=== PATIENT | male | born 1960 | race Caucasian/White ===

== ENCOUNTER 2020-11-16 22:00 | Emergency (ER) | payer OTHER, SELFPAY ==
[2020-11-16 23:52] VITALS: BP 138/85; PULSE 72; RESP 18; TEMP 36; O2SAT 98; BMI 25.8
--- NOTE | 2020-11-17 00:13 | ED.ANIMALBIT ---
HPI - Animal Bite General Chief Complaint: Animal Bite Stated Complaint: DOG BITES Time Seen by Provider: 11/17/20 00:02 Source: patient Mode of arrival: ambulatory Limitations: no limitations History of Present Illness HPI narrative: Patient comes to emergency room complaining of multiple dog bites to the hands. Patient states he has to [place] dogs which got into a fight with each other. As patient was trying to break up the fight, he was bitten in the process. Patient has multiple small puncture wounds to both hands, most notably on the left palm. However, patient is also complaining of a small laceration to the scrotal skin. Patient states he does not remember being bitten in the scrotum. Patient states his pants and underwear do not have holes. After the dog bite, patient went to the restroom, as he sat down on a toilet, he noticed that there was a laceration in his scrotum which was not there before the dog fight. Patient denies being injured with the zipper of his pants. Patient states that he does not believe that he is up-to-date with his tetanus shot. MD complaint: animal bite Related Data Previous Rx's Medication Instructions Recorded amoxicillin-pot clavulanate 1 tab PO BID #19 tab 11/17/20 [Augmentin] Allergies Allergy/AdvReac Type Severity Reaction Status Date / Time No Known Allergies Allergy Verified 11/16/20 23:52 Review of Systems Review of Systems: Constitutional : No Weight loss, No Fever, No Chills, No Night Sweats, No Fatigue, No Malaise ENT/Mouth : No Hearing loss, No Ear Pain, No Nasal Congestion, No Sinus Pain, No Hoarseness, No sore throat, No Rhinorrhea, No Swallowing Difficulty Eyes: No Eye Pain, No Swelling, No Redness, No Foreign Body, No Discharge, No Vision Changes Cardiovascular : No Chest Pain, No SOB, No Dyspnea on Exertion, No Orthopnea, No Edema, No Palpitations Respiratory : No Cough, No Sputum, No Wheezing, No Smoke Exposure, No Dyspnea Gastrointestinal : No Nausea, No Vomiting, No Diarrhea, No Constipation, No abdominal Pain, No Hematochezia, No Melena Genitourinary : no irregular bleeding, No Dysuria, No Urinary Frequency, No Hematuria, No Urinary Incontinence, No Urgency, No Flank Pain, No Urinary Flow Changes, No Hesitancy Musculoskeletal : No joint pain, No Myalgias, No Joint Swelling Skin : Multiple puncture wounds to left palm and multiple scratches to both hands, also small laceration to the skin in scrotum Neuro : No Weakness, No Numbness, No Paresthesias, No Loss of Consciousness, No Dizziness, No Headache Psych : No Anxiety/Panic, No Depression, No SI/HI/AH/VH, No Social Issues, Heme/Lymph: No Bruising, No Bleeding,No Lymphadenopathy Endocrine : No Polyuria, No Polydipsia, No Temperature Intolerance [facility] Past Medical History Medical History Healthy adult Social History Social History Advance Directives: No Physical Exam Vital Signs: Vital Signs: Last Vital Signs Temp 96.8 F 11/16/20 23:52 Pulse 72 11/16/20 23:52 Resp 18 11/16/20 23:52 BP 138/85 11/16/20 23:52 Pulse Ox 98 11/16/20 23:52 Body Mass Index 25.8 Appearance: Alert. Oriented X3. No acute distress. Eyes: Pupils equal, round and reactive to light. ENT: Pharynx normal. Neck: Normal inspection. Neck supple. No lymph nodes noted. No crepitus CVS: Normal heart rate and rhythm. Pulses normal. Normal S1 and S2 Respiratory: No respiratory distress. Breath sounds normal. No Wheezing. No rales Abdomen: Soft and nontender. No rigidity. No distention. good BS x4 : see bellow Skin: There are multiple puncture wounds to the palm of the left hand, superficial scratches to both hands in the palmar and dorsal aspect. There is also a 1 cm laceration to the scrotal skin, skin is lacerated but is not deep, the testes and penis are intact Extremities: No lower extremity edema. No lower extremity edema. No Lacerations. No Rash Neuro: Oriented X 3. No motor deficit. No sensory deficit. Moving all extermities. No slurred speech. Course Course Course Narrative: Patient's hands were soaked in normal saline with Betadine. Scrotum skin was stitched. I discussed with the patient that usually dog bites are not stitched up on a stair face, however the skin in the scrotum speech is very , and the stitches applied where to confront the skin and speed of the healing, there was enough space between stitches to allow for drainage. I discussed with the patient that if the stitches become infected, sees any redness, pus, spikes fever or if the hand wounds become infected, he needs to return immediately to the emergency room. Procedures Laceration Laceration 1: Site: other (Scrotum) Size (cm): 2 Description: stellate, flap and irregular Depth: simple, single layer Local Anesthetic: lidocaine 2% Amount of anesthesia used (mL): 2 Pre-repair: irrigated extensively Skin layer closed with: nylon Size (cm): 6-0 Number of sutures: 4 Technique: simple, interrupted Discharge Plan Discharge Clinical Impression: Laceration Dog bite Qualifiers: Encounter type: initial encounter Qualified Code(s): W54.0XXA - Bitten by dog, initial encounter Patient Disposition: Home, Self-Care Instructions: Care For Your Stitches (ED) Additional Instructions: If you have any signs of infection such as redness, increased pain, increased warmth in the affected area, pus drainage, spiked fever, or anything unusual, please return to the emergency room. Your stitches need to be removed in 7-10 days. They can be removed at your primary care doctor's office or you may return to the emergency room. Please follow-up with your primary care physician tomorrow. If you have any worsening or new symptoms, please return to the emergency room or call 911 Prescriptions: New amoxicillin-pot clavulanate [Augmentin] 875-125 mg tablet 1 tab PO BID Qty: 19 RF: 0
[2020-11-17] MEDS: Amoxicillin/Potassium Clav 875 MG TABLET PO (00:50)
[2020-11-17] MEDS: Lidocaine HCl 2 % MPF 5 ML VIAL INFILTRATI (00:54)
== END 2020-11-17 01:21 | disposition home or self-care (01) ==
PROVIDERS: Emergency Provider Emergency Medicine; PCP Internal Medicine
DX: S31.31XA Laceration without foreign body of scrotum and testes, initial encounter (principal); S61.432A Puncture wound without foreign body of left hand, initial encounter; S61.431A Puncture wound without foreign body of right hand, initial encounter; S60.512A Abrasion of left hand, initial encounter; S60.511A Abrasion of right hand, initial encounter; W54.0XXA Bitten by dog, initial encounter; Y93.89 Activity, other specified; Y92.019 Unspecified place in single-family (private) house as the place of occurrence of the external cause; Y99.9 Unspecified external cause status
CPT/HCPCS: 12001; 90471; 90715; 99284

== ENCOUNTER 2020-11-21 07:57 | Emergency (ER) | payer OTHER, SELFPAY ==
[2020-11-21 08:53] VITALS: BP 121/77; PULSE 63; RESP 16; TEMP 36.8; O2SAT 97; BMI 25.7
--- NOTE | 2020-11-21 09:04 | ED.WOUNDLAC ---
HPI - Wound/Laceration General Chief Complaint: Wound/Laceration Stated Complaint: SUTURES CAME OUT Time Seen by Provider: 11/21/20 09:04 History of Present Illness HPI narrative: Patient is a 60-year-old male patient had laceration to his scrotum on was bitten by his dog. No fever no chills a few of the stitches came out. Patient presented for wound check. No systemic complaints. Patient not on blood thinners. He has been trying to keep it clean Related Data Previous Rx's Medication Instructions Recorded amoxicillin-pot clavulanate 1 tab PO BID #19 tab 11/17/20 [Augmentin] Allergies Allergy/AdvReac Type Severity Reaction Status Date / Time No Known Allergies Allergy Verified 11/16/20 23:52 Review of Systems Review of Systems: Constitutional: No Weight loss, No Fever, No Chills, No Night Sweats, No Fatigue, No Malaise ENT/Mouth: No Hearing loss, No Ear Pain, No Nasal Congestion, No Sinus Pain, No Hoarseness, No sore throat, No Rhinorrhea, No Swallowing Difficulty Eyes: No Eye Pain, No Swelling, No Redness, No Foreign Body, No Discharge, No Vision Changes Cardiovascular: No Chest Pain, No SOB, No Dyspnea on Exertion, No Orthopnea, No Edema, No Palpitations Respiratory: No Cough, No Sputum, No Wheezing, No Smoke Exposure, No Dyspnea Gastrointestinal: No Nausea, No Vomiting, No Diarrhea, No Constipation, No abdominal Pain, No Hematochezia, No Melena Genitourinary: no irregular bleeding, No Dysuria, No Urinary Frequency, No Hematuria, No Urinary Incontinence, No Urgency, No Flank Pain, No Urinary Flow Changes, No Hesitancy Musculoskeletal: No joint pain, No Myalgias, No Joint Swelling Skin: Positive scrotal lesion approximately 3 cm in size. Neuro: No Weakness, No Numbness, No Paresthesias, No Loss of Consciousness, No Dizziness, No Headache Psych: No Anxiety/Panic, No Depression, No SI/HI/AH/VH, No Social Issues, Heme/Lymph: No Bruising, No Bleeding,No Lymphadenopathy Endocrine: No Polyuria, No Polydipsia, No Temperature Intolerance PMFSH Past Medical History Medical History Healthy adult Restless leg syndrome Social History Social History Smoked in Last 30 Days: No Use of substances other than those prescribed or required for medical reasons: No Advance Directives: No Advance Directives Information Provided: Yes Physical Exam Vital Signs: Vital Signs: Last Vital Signs Temp 98.2 F 11/21/20 08:53 Pulse 63 11/21/20 08:53 Resp 16 11/21/20 08:53 BP 121/77 11/21/20 08:53 Pulse Ox 97 11/21/20 08:53 Body Mass Index 25.7 Appearance: Alert. Oriented X3. No acute distress. Eyes: Pupils equal, round and reactive to light. ENT: Pharynx normal. Neck: Normal inspection. Neck supple. No lymph nodes noted. No crepitus CVS: Normal heart rate and rhythm. Pulses normal. Normal S1 and S2 Respiratory: No respiratory distress. Breath sounds normal. No Wheezing. No rales Abdomen: Soft and nontender. No rigidity. No distention. good BS x4 Skin: Skin warm and dry. Normal skin color. Normal skin turgor. There is a wound in the scrotum approximately 2 cm to 3 cm in size. The lower 2 stitches has opened up. There is granulation tissue at the base. Minimal erythema minimal discharge noted. The top 2 sutures are still in place. Extremities: No lower extremity edema. Neurovascular intact to all extremities. No Lacerations. No Rash Neuro: Oriented X 3. No motor deficit. No sensory deficit. Moving all extermities. No slurred speech MDM - Wound/Laceration MDM Narrative Medical decision making narrative: Patient already on antibiotics. Will discharge patient home. Continue current management of cleaning and using antibiotic. There is no systemic complaints. Patient well appearing. Has close follow-up for wound checks. Will discharge patient home Differential Diagnosis Differential diagnosis: Likely laceration Medical Records Attestation: I reviewed the patient's medical records. Lab Data Attestation: I reviewed the patient's lab results. Discharge Plan Discharge Clinical Impression: Laceration Patient Disposition: Home, Self-Care Instructions: Acute Wounds (ED), Animal Bite (ED) Prescriptions: No Action amoxicillin-pot clavulanate [Augmentin] 875-125 mg tablet 1 tab PO BID Qty: 19 RF: 0 Referrals: Ross Burt MD [Primary Care Provider] - 2 days
== END 2020-11-21 09:27 | disposition home or self-care (01) ==
PROVIDERS: Emergency Provider Emergency Medicine Emergency Medical Services; PCP Internal Medicine
DX: S31.35XA Open bite of scrotum and testes, initial encounter (principal); N50.812 Left testicular pain; N50.811 Right testicular pain; W54.0XXA Bitten by dog, initial encounter; Y93.9 Activity, unspecified; Y92.9 Unspecified place or not applicable; Y99.9 Unspecified external cause status
CPT/HCPCS: 99283

== ENCOUNTER 2022-01-28 04:44 | Inpatient (IN) | payer OTHER, SELFPAY ==
--- NOTE | ~2022-01-28 | CT_ITS ---
EXAMINATION: d CT SCAN OF THE LEFT HAND WAS PERFORMED WITH CONTRAST. CLINICAL INFORMATION: Evaluate for tenosynovitis fifth digit COMPARISON: None TECHNIQUE: CT scan of the left hand is performed with contrast. Contrast dose 85 cc cc of Omnipaque 350 . Obstruction imaging performed at the acquisition workstation FINDINGS: Subcutaneous soft tissues: There is increased density circumferentially involving the distal portion of the fifth finger beginning at the level of the mid proximal phalanx and extending distally. Muscles and tendons: Fifth digit: Tendons normal. No tenosynovitis. Bony and articular cartilage: Normal. CT/CT hand LT w con IMPRESSION: Increased density in the subcutaneous soft tissues of the distal fifth finger. This could reflect cellulitis or edema. I do not see tenosynovitis
[2022-01-28 05:00] VITALS: BP 120/73; PULSE 60; RESP 16; TEMP 36.4; O2SAT 97
[2022-01-28 05:10] VITALS: BMI 25.0
--- NOTE | 2022-01-28 05:17 | ED.EXTPRO ---
HPI - Extremity Problem General Chief complaint: Extremity Problem Stated complaint: infection in L pinky finger (swollen) Time Seen by Provider: 01/28/22 05:00 Source: patient Mode of arrival: ambulatory Limitations: no limitations History of Present Illness HPI Narrative: Patient comes to the emergency room complaining of an infection in the left 5th digit. Patient states that he has been developing a small pimple like structure on the dorsal aspect of the finger. Him the last few days, patient started complaining of pain and oozing from the site. Patient went to urgent care yesterday, they drained the small abscess. Patient was started on Keflex and Bactrim. This morning, patient woke up with worsening pain, swelling and redness, now the erythema is spreading to the dorsum of his hand. Patient denies fever chills. Related Data Previous Rx's Medication Instructions Recorded amoxicillin 875 mg-potassium 1 tab PO BID #19 tab 11/17/20 clavulanate 125 mg tablet (Augmentin) Allergies Allergy/AdvReac Type Severity Reaction Status Date / Time No Known Allergies Allergy Verified 11/16/20 23:52 Review of Systems Review of Systems: Constitutional : No Weight loss, No Fever, No Chills, No Night Sweats, No Fatigue, No Malaise ENT/Mouth : No Hearing loss, No Ear Pain, No Nasal Congestion, No Sinus Pain, No Hoarseness, No sore throat, No Rhinorrhea, No Swallowing Difficulty Eyes: No Eye Pain, No Swelling, No Redness, No Foreign Body, No Discharge, No Vision Changes Cardiovascular : No Chest Pain, No SOB, No Dyspnea on Exertion, No Orthopnea, No Edema, No Palpitations Respiratory : No Cough, No Sputum, No Wheezing, No Smoke Exposure, No Dyspnea Gastrointestinal : No Nausea, No Vomiting, No Diarrhea, No Constipation, No abdominal Pain, No Hematochezia, No Melena Genitourinary : no irregular bleeding, No Dysuria, No Urinary Frequency, No Hematuria, No Urinary Incontinence, No Urgency, No Flank Pain, No Urinary Flow Changes, No Hesitancy Musculoskeletal : No joint pain, No Myalgias, No Joint Swelling Skin : Worsening redness swelling and pain in the 5th left finger Neuro : No Weakness, No Numbness, No Paresthesias, No Loss of Consciousness, No Dizziness, No Headache Psych : No Anxiety/Panic, No Depression, No SI/HI/AH/VH, No Social Issues, Heme/Lymph: No Bruising, No Bleeding,No Lymphadenopathy Endocrine : No Polyuria, No Polydipsia, No Temperature Intolerance [facility] Past Medical History Medical History Healthy adult Restless leg syndrome Social History Social History Advance Directives: No Advance Directives Information Provided: No Physical Exam Vital Signs: Vital Signs: Last Vital Signs Temp 97.5 F 01/28/22 05:00 Pulse 60 01/28/22 05:00 Resp 16 01/28/22 05:00 BP 120/73 01/28/22 05:00 Pulse Ox 97 01/28/22 05:00 BMI result Body Mass Index 25.0 Const: Other: Appearance: Alert. Oriented X3. No acute distress. Eyes: Pupils equal, round and reactive to light. ENT: Pharynx normal. Neck: Normal inspection. Neck supple. No lymph nodes noted. No crepitus CVS: Normal heart rate and rhythm. Pulses normal. Normal S1 and S2 Respiratory: No respiratory distress. Breath sounds normal. No Wheezing. No rales Abdomen: Soft and nontender. No rigidity. No distention. Skin: Skin warm and dry. See extremity below Extremities: No lower extremity edema. Patient's 5th finger on the left hand is swollen, erythematous, erythema spreading to the dorsum of the left hand. Patient is able to flex and extend all fingers including the 5th digit Neuro: Oriented X 3. No motor deficit. No sensory deficit. Moving all extremities. No slurred speech. CN 2 through 12 grossly intact Psych: calm, cooperative, normal affect Course Course Course Narrative: Patient has been on an antibiotic for less than 24 hours, however he has had 2 doses and the erythema is rapidly spreading. I discussed with the patient that we will go ahead and get labs, imaging to rule out tenosynovitis. Overall, patient is likely to be admitted to the hospital. Patient agrees with plan. Discharge Plan Discharge Clinical Impression: Cellulitis of finger of left hand Patient Disposition: Admitted As Inpatient Prescriptions: No Action amoxicillin-pot clavulanate [Augmentin] 875-125 mg tablet 1 tab PO BID Qty: 19 0RF
[2022-01-28 05:49] LABS: MANUAL DIFF FLAG NO
[2022-01-28] MEDS: 0.9 % Sodium Chloride 1,000 ML 999 ML IVCONT (05:49)
[2022-01-28] MEDS: Piperacillin Sodium/Tazobactam 4.5 GM in 0.9 % Sodium Chloride 100 ML IV (05:49)
[2022-01-28 05:51] LABS: Basophils Percent Auto 0.1 % (0-2); Eosinophils Absolute Auto 0.1 X10*3/uL (0.0-0.4); Eosinophils Percent Auto 0.6 % (0-4); Hematocrit 42.5 % (42.0-52.0); Hemoglobin 14.7 g/dl (14.0-18.0); Imm Gran Abs Auto 0.02 X10*3/uL (0.00-0.03); Imm Gran Pct Auto 0.2 % (0.0-0.4); Lymphocytes Percent Auto 9.5 % (20-40); Mean Corpuscular HGB Conc 34.6 g/dl (31.0-36.0); Mean Corpuscular Hemoglobin 30.2 pg (27.0-33.0); Mean Corpuscular Volume 87.4 fL (80.0-98.0); Mean Platelet Volume 9.2 fL (9.4-12.4); Monocytes Absolute Auto 0.8 X10*3/uL (0.1-1.2); Monocytes Percent Auto 7.6 % (2-11); Neutrophils Absolute Auto 8.3 x10*3/uL (2.0-8.3); Platelet Count 200 X10*3/uL (160-400); Red Blood Count 4.86 X10*6/uL (4.60-5.80); Red Cell Distribution Width 12.4 % (11.0-16.0); White Blood Count 10.2 X10*3/uL (4.8-10.8)
[2022-01-28 06:03] LABS: COVID-19 Test Negative (Negative)
[2022-01-28 06:04] LABS: Lactic Acid 1.7 mmol/L (0.5-2.0)
[2022-01-28 06:09] LABS: Alanine Aminotransferase 26 U/L (0-40); Albumin Level 4.3 g/dL (3.5-5.0); Alkaline Phosphatase 52 U/L (39-117); Anion Gap 14 (12-20); Aspartate Amino Transferase 31 U/L (5-37); Bilirubin Direct 0.3 mg/dL (0.0-0.5); Bilirubin Total 0.9 mg/dL (0.0-1.0); Blood Urea Nitrogen 18 mg/dL (9-16); Calcium 9.4 mg/dL (8.4-10.2); Carbon Dioxide 24 mmol/L (22-29); Chloride 105 mmol/L (96-108); Creatinine Clr Calc Pharmacy 68.8; Estimated Glomerular Filt Rate > 60; Glucose Random 100 mg/dL (60-115); Potassium 4.1 mmol/L (3.3-5.1); Sodium 139 mmol/L (135-145); Total Protein 6.8 g/dL (6.5-8.0)
--- NOTE | 2022-01-28 06:26 | PHA.PROG ---
Admission Date/Time: Indication: Skin and skin structure Weight in k.575 kg Adjusted body weight in K.69 [place] body weight in Kg: Obesity Dosing Indication % IBW: Serum Creatinine - Last 168 Hours 01/28/22 05:44 Creatinine 1.08 Estimated CrCl and GFR - Last 168 Hours 01/28/22 05:44 Estim Creat Clear Calc 68.8 Estimated GFR > 60 Vancomycin Loading Dose: 1500 mg x 1 Current Vancomycin Dosing Regimen: 750mg q12h Vancomycin Monitoring using AUC goal of 400 - 600 range with trough as surrogate marker: auc 475, trough 15.6 Date and Time for next Vancomycin Level to be drawn: 01/29/2022 @ 1700 Pharmacist Comments on Vancomycin Plan: Please watch renal function. Trough after 3rd dose will be therapuetic but AUC expected to be over 400 at 48 hour kathia Vancomycin dosing will take advantage of [employer] as a clinical decision support tool that uses Bayesian modeling to calculate individual patient's pharmacokinetic parameters and forecast the patient's drug concentration time course with the target goal AUC 24 range of 400 - 600 mg/L/hr.
[2022-01-28] MEDS: iohexoL 350 MG/ML 100 ML INFUS..BTL 85 ML IV (07:03)
[2022-01-28] MEDS: vancomycin HCL 1,500 MG in 0.9 % Sodium Chloride 500 ML 333.33 MG IV (07:35)
--- NOTE | 2022-01-28 07:45 | PC.NURSE ---
Pt is A&Ox4. Pain 6/10 to L 5th digit. Redness and swelling present, no drainage noted at this time. +pulses. Plan for admission, pt is aware. Call amato within reach. Will continue to monitor.
--- NOTE | 2022-01-28 08:23 | PHA.MEDREC ---
Pharmacy Consult ? Medication Reconciliation Pharmacy has completed the medication reconciliation.
--- NOTE | 2022-01-28 09:46 | PM.IMHP ---
History of Present Illness Date of Service: 01/28/22 Chief Complaint: Left little finger erythema and swelling A 61 years old patient with PMH of restless leg who presents to the hospital complaining of little left finger pain and swelling for the last day. He reported that he developed a pimple over the fingers day before presentation to the hospital that he went to urgent care who did drainage for the small abscess and started him on oral antibiotics. He went back home and started the pills but noticed a swelling, erythema and pain are increasing an expanding to his wrist so he decided to come to the hospital for further evaluation and treatment. He denies any fever, chills, abdominal pain, nausea or vomiting or change in bowel habit. He will be admitted for further evaluation and treatment. Review of Systems Review of Systems: No fever, chills or weakness No chest pain, palpitation No shortness of breath or coughing No abdominal pain, nausea or vomiting No urinary symptoms Pain in his little finger PMFSH Medical History Healthy adult Restless leg syndrome Family History (Updated 01/28/22 @ 10:03 by Gabino Dey MD) Father Hypertension Social History Advance Directives: No Advance Directives Information Provided: No Meds Allergies Allergy/AdvReac Type Severity Reaction Status Date / Time No Known Allergies Allergy Verified 11/16/20 23:52 Active Medications: Current Medications Acetaminophen (Acetaminophen 325 Mg Tablet) 650 mg PO Q6H PRN PRN Reason: Pain, Mild (Pain Scale 1-3) Gabapentin (Gabapentin 400 Mg Capsule) 400 mg PO BEDTIME LADY Heparin Sodium (Porcine) (Heparin Sodium,Porcine 5,000 Unit/Ml Vial) 5,000 unit SUBCUT Q8H LADY Vancomycin HCl 750 mg/ Sodium (Chloride) 265 mls @ 265 mls/hr IV Q12H LADY Ketorolac Tromethamine (Ketorolac Tromethamine 30 Mg/Ml Vial) 30 mg IVPUSH ONCE ONE Stop: 01/28/22 09:43 Ondansetron HCl (Ondansetron Hcl 4 Mg/2 Ml Vial) 4 mg IVPUSH Q8H PRN PRN Reason: Nausea and Vomiting Oxycodone HCl (Oxycodone Hcl Immed Release 5 Mg Tablet) 5 mg PO Q6H PRN PRN Reason: Pain, Severe (Pain Scale 7-10) Pharmacy Consult (Consult Rx Vancomycin Dosing) 1 each MISCELLANE DAILY PRN PRN Reason: Consult order Sodium Chloride (0.9 % Sodium Chloride Flush 3 Ml Syringe) 3 ml IVFLUSH QSHIFT [facility] Home Medications Medication Instructions Recorded Confirmed Last Taken Type acetaminophen 300 mg-codeine 30 mg 1 tab PO Q6H PRN 01/28/22 01/28/22 01/28/22 History tablet gabapentin 400 mg capsule 1 cap PO BEDTIME 01/28/22 01/28/22 01/27/22 History sulfamethoxazole 800 1 tab PO BID 01/28/22 01/28/22 01/28/22 History mg-trimethoprim 160 mg tablet Physical Exam Vital Signs and Narrative: Vital Signs: Last Vital Signs Temp 97.5 F 01/28/22 05:00 Pulse 60 01/28/22 05:00 Resp 16 01/28/22 05:00 BP 120/73 01/28/22 05:00 Pulse Ox 97 01/28/22 05:00 BMI result Body Mass Index 25.0 Const: Other: Constitutional : Alert, oriented, not in distress Neck : Normal inspection, Supple Cardiovascular : RRR, S1 S2, no lower extremity edema Respiratory : Good bilateral air entry, no crackles, wheezes or rhonchi Gastrointestinal: soft, lax, Normal bowel sounds, Non tender Skin : Warm, Dry, left little finger erythema, with swelling of the top of the finger with erythema extending to the wrist, significant bleed decreased range of movement and pain with touch. Neurological : Alert & oriented x3, No focal deficit Results Labs CBC and Chem 7: 01/28/22 05:44 01/28/22 05:44 Labs: Laboratory Results - last 24 hr 01/28/22 01/28/22 01/28/22 05:44 05:44 05:44 MCV 87.4 MCH 30.2 MCHC 34.6 RDW 12.4 Plt Count 200 MPV 9.2 L Immature Gran % (Auto) 0.2 Neut % (Auto) 82.0 H Lymph % (Auto) 9.5 L [place] % (Auto) 7.6 Eos % (Auto) 0.6 Baso % (Auto) 0.1 Lymph # (Auto) 1.0 L [place] # (Auto) 0.8 Eos # (Auto) 0.1 Baso # (Auto) 0.0 Abs Immat Gran (auto) 0.02 Absolute Neuts (auto) 8.3 Absolute Nucleated RBC 0.000 Nucleated RBC % (auto) 0.0 Anion Gap 14 Estim Creat Clear Calc 68.8 Estimated GFR > 60 Random Glucose 100 Lactic Acid 1.7 Calcium 9.4 Total Bilirubin 0.9 Direct Bilirubin 0.3 AST 31 ALT 26 Alkaline Phosphatase 52 Total Protein 6.8 Albumin 4.3 COVID-19 (EFFIE) COVID-19 Clin Com 01/28/22 05:44 MCV MCH MCHC RDW Plt Count MPV Immature Gran % (Auto) Neut % (Auto) Lymph % (Auto) [place] % (Auto) Eos % (Auto) Baso % (Auto) Lymph # (Auto) [place] # (Auto) Eos # (Auto) Baso # (Auto) Abs Immat Gran (auto) Absolute Neuts (auto) Absolute Nucleated RBC Nucleated RBC % (auto) Anion Gap Estim Creat Clear Calc Estimated GFR Random Glucose Lactic Acid Calcium Total Bilirubin Direct Bilirubin AST ALT Alkaline Phosphatase Total Protein Albumin COVID-19 (EFFIE) Negative COVID-19 Clin Com See Note Imaging Radiologist's Impressions: Impressions Hand CT 01/28/22 07:10 IMPRESSION: Increased density in the subcutaneous soft tissues of the distal fifth finger. This could reflect cellulitis or edema. I do not see tenosynovitis Assessment and Plan (1) Cellulitis of finger of left hand: Status: Acute Plan A 61 years old patient with PMH of restless leg who presents to the hospital complaining of little left finger pain and swelling for the last day. Left hand cellulitis Not septic CT scan not showing Tinoynovitis Pending blood cultures Get hand surgery evaluation Start broad-spectrum antibiotic of vancomycin Zosyn Restless leg syndrome Continue gabapentin DVT PPX Heparin The patient will need at least 2 overnight hospital stay for evaluation and treatment above cellulitis and decrease range of motion in the finger given possible decompensation pending orthopedic evaluation. Quality Stroke Does the patient have a stroke diagnosis?: No VTE Prior VTE?: No VTE Risk Level:: Medical - moderate - high VTE Device Contraindication: Treatment Not Indicated VTE Drug Contraindication: N/A - Med Ordered
[2022-01-28] MEDS: oxyCODONE HCl Immed Release 5 MG TABLET PO ×3 (09:47→22:11)
[2022-01-28] MEDS: Ketorolac Tromethamine 30 MG/ML VIAL IVPUSH (10:23)
[2022-01-28] MEDS: Heparin Sodium,Porcine 5,000 UNIT/ML VIAL 5000 UNIT SUBCUT ×2 (10:23→18:26)
--- NOTE | 2022-01-28 11:50 | PC.NURSE ---
Pt sitting in chair in room, pain controlled at this time, aware and agreeable to admission plan. Call amato within reach, snacks provided. Awaiting bed assignment, will continue to monitor.
--- NOTE | 2022-01-28 14:02 | PM.CNOR ---
History of Present Illness HPI Consult date: 01/28/22 Chief complaint: Finger pain Narrative: 61 yo male who presented to the ED with worsening pain, swelling and redness of the left small finger . He states it started as a pimple and he tried topop it, he noticed worsening symptoms the following day and was seen at Urgent care where they made a pin prick incision and drained some pus and placed him on PO abx. He came in today with worsening symptoms. He was admitted to the medical service and started on iv abx and ortho was consulted for further recommendtions. Review of Systems Review of Systems: per [facility] Past Medical History Medical History Healthy adult Restless leg syndrome Family History Family History (Updated 01/28/22 @ 10:03 by Gabino Dey MD) Father Hypertension Social History Social History Advance Directives: No Advance Directives Information Provided: No Meds Allergies Allergy/AdvReac Type Severity Reaction Status Date / Time No Known Allergies Allergy Verified 11/16/20 23:52 Active Medications: Current Medications Acetaminophen (Acetaminophen 325 Mg Tablet) 650 mg PO Q6H PRN PRN Reason: Pain, Mild (Pain Scale 1-3) Gabapentin (Gabapentin 400 Mg Capsule) 400 mg PO BEDTIME [facility] Heparin Sodium (Porcine) (Heparin Sodium,Porcine 5,000 Unit/Ml Vial) 5,000 unit SUBCUT Q8H [facility] Last Admin: 01/28/22 10:23 Dose: 5,000 unit Documented by: Vancomycin HCl 750 mg/ Sodium (Chloride) 265 mls @ 265 mls/hr IV Q12H [facility] Ondansetron HCl (Ondansetron Hcl 4 Mg/2 Ml Vial) 4 mg IVPUSH Q8H PRN PRN Reason: Nausea and Vomiting Oxycodone HCl (Oxycodone Hcl Immed Release 5 Mg Tablet) 5 mg PO Q6H PRN PRN Reason: Pain, Severe (Pain Scale 7-10) Pharmacy Consult (Consult Rx Vancomycin Dosing) 1 each MISCELLANE DAILY PRN PRN Reason: Consult order Sodium Chloride (0.9 % Sodium Chloride Flush 3 Ml Syringe) 3 ml IVFLUSH QSHIFT [facility] Home Medications Medication Instructions Recorded Confirmed Last Taken Type acetaminophen 300 mg-codeine 30 mg 1 tab PO Q6H PRN 01/28/22 01/28/22 01/28/22 History tablet gabapentin 400 mg capsule 1 cap PO BEDTIME 01/28/22 01/28/22 01/27/22 History sulfamethoxazole 800 1 tab PO BID 01/28/22 01/28/22 01/28/22 History mg-trimethoprim 160 mg tablet Physical Exam Vital Signs: Vital Signs: Last Vital Signs Temp 97.5 F 01/28/22 05:00 Pulse 60 01/28/22 05:00 Resp 16 01/28/22 05:00 BP 120/73 01/28/22 05:00 Pulse Ox 97 01/28/22 05:00 BMI result Body Mass Index 25.0 Const: General: cooperative, comfortable and no acute distress Extrem: Other: left small finger redness and swelling over the DIP with fluctulance. He is able to flex and extend digits 1-4. No pain in the palmar aspect of the hand. No pain beyond the mcp of the 5th finger into the hand. No pain with axil loading of the finger. Results Labs Result Diagrams: 01/28/22 05:44 01/28/22 05:44 Labs: Abnormal lab results 01/28/22 01/28/22 Range/Units 05:44 05:44 MPV 9.2 L (9.4-12.4) fL Neut % (Auto) 82.0 H (45-73) % Lymph % (Auto) 9.5 L (20-40) % Lymph # (Auto) 1.0 L (1.2-4.9) X10*3/uL BUN 18 H (9-16) mg/dL H & H 01/28/22 Range/Units 05:44 Hgb 14.7 (14.0-18.0) g/dl Hct 42.5 (42.0-52.0) % All other labs normal. Assessment and Plan (1) Cellulitis of finger of left hand: Status: Acute Plan I spoke with Dr Ponce and the plan is to do an ulnar nerve block and perform bedside I*D of the left small finger. He will continue IV abx and continue to monitor . Procedures Date of Service Date of Service: 01/28/22 Abscess I/D Consent for Procedure: Elective - informed consent obtained Site: hand Side (if applicable): left Anesthetic used: without epi Technique: incised with #11 blade Packing used?: none Additional comments: 1cm incision made along the lateral aspect oft he distal finger - no pus present, only hematoma. Dry dressing applied with a splint.
[2022-01-28] MEDS: Lidocaine HCl 2 % MPF 5 ML VIAL SUBCUT (15:12)
[2022-01-28 15:57] VITALS: BP 139/65; PULSE 90; RESP 16; TEMP 38.3; O2SAT 100
[2022-01-28] MEDS: Acetaminophen 325 MG TABLET 650 MG PO (16:02)
[2022-01-28 16:50] VITALS: TEMP 39.2
[2022-01-28] MEDS: 0.9 % Sodium Chloride Flush 3 ML SYRINGE IVFLUSH (17:08)
[2022-01-28] MEDS: Piperacillin Sodium/Tazobactam 3.375 GM in 0.9 % Sodium Chloride 50 ML IV (17:08)
[2022-01-28] MEDS: vancomycin HCL 750 MG in 0.9 % Sodium Chloride 250 ML 265 MG IV (18:18)
[2022-01-28 20:00] VITALS: BP 118/62; PULSE 72; RESP 16; TEMP 37.6; O2SAT 99
[2022-01-28 22:41] LABS: Anion Gap 12 (12-20); Blood Urea Nitrogen 16 mg/dL (9-16); Calcium 8.7 mg/dL (8.4-10.2); Carbon Dioxide 26 mmol/L (22-29); Chloride 104 mmol/L (96-108); Creatinine Clr Calc Pharmacy 58.5; Estimated Glomerular Filt Rate 58; Glucose Random 123 mg/dL (60-115); Sodium 138 mmol/L (135-145)
--- NOTE | 2022-01-28 22:41 | PC.NURSE ---
fever this afternoon , Dr Dey was notified , per MD medicate with Tylenol and continue antibiotics.
--- NOTE | 2022-01-28 22:45 | PC.NURSE ---
At 21:00 dressing to lt small finger saturated with pink fluids. The outer dressing was removed , hematoma present to the top of small finger , left hand increaseed redness and swelling . Surgery was notified , BHUMI Perry responded with instruction to elevate lt hand above the heart, kathia the redness , keep pt Npo after MN for possible OR intervantion. Pt was also seen by DR Heredia . Outer Dressing applied to the site , left hand elevated above the heart . Pt insormed ,educated ABOUT THE PLAN OF SILVIA
[2022-01-29] VITALS (7 sets, daily range): BP systolic 100–132; BP diastolic 50–68; PULSE 60–84; RESP 15–18; TEMP 36.5–37.7; O2SAT 93–99
[2022-01-29] MEDS: 0.9 % Sodium Chloride Flush 3 ML SYRINGE IVFLUSH ×4 (01:44→23:37)
[2022-01-29] MEDS: Piperacillin Sodium/Tazobactam 3.375 GM in 0.9 % Sodium Chloride 50 ML IV ×5 (01:56→23:37)
[2022-01-29] MEDS: Acetaminophen 325 MG TABLET 650 MG PO (04:02)
[2022-01-29] MEDS: oxyCODONE HCl Immed Release 5 MG TABLET PO ×2 (04:03→20:46)
[2022-01-29 06:28] LABS: MANUAL DIFF FLAG NO
[2022-01-29 06:46] LABS: Basophils Percent Auto 0.1 % (0-2); Eosinophils Percent Auto 0.1 % (0-4); Hemoglobin 12.1 g/dl (14.0-18.0); Imm Gran Abs Auto 0.05 X10*3/uL (0.00-0.03); Imm Gran Pct Auto 0.5 % (0.0-0.4); Lymphocytes Absolute Auto 1.1 X10*3/uL (1.2-4.9); Lymphocytes Percent Auto 9.7 % (20-40); Mean Corpuscular HGB Conc 33.6 g/dl (31.0-36.0); Mean Corpuscular Hemoglobin 29.7 pg (27.0-33.0); Mean Corpuscular Volume 88.2 fL (80.0-98.0); Mean Platelet Volume 9.1 fL (9.4-12.4); Monocytes Absolute Auto 1.1 X10*3/uL (0.1-1.2); Neutrophils Absolute Auto 8.6 x10*3/uL (2.0-8.3); Neutrophils Percent Auto 79.6 % (45-73); Platelet Count 171 X10*3/uL (160-400); Red Blood Count 4.08 X10*6/uL (4.60-5.80); Red Cell Distribution Width 12.4 % (11.0-16.0); White Blood Count 10.8 X10*3/uL (4.8-10.8)
[2022-01-29 07:01] LABS: Anion Gap 11 (12-20); Blood Urea Nitrogen 18 mg/dL (9-16); C Reactive Protein 9.49 mg/dL (< or = 0.50); Calcium 8.6 mg/dL (8.4-10.2); Carbon Dioxide 25 mmol/L (22-29); Chloride 106 mmol/L (96-108); Creatinine Clr Calc Pharmacy 55.4; Estimated Glomerular Filt Rate 55; Glucose Random 112 mg/dL (60-115); Sodium 138 mmol/L (135-145)
[2022-01-29 07:09] LABS: Erythrocyte Sedimentation Rate 12 MM/HR (0-15)
[2022-01-29] MEDS: vancomycin HCL 750 MG in 0.9 % Sodium Chloride 250 ML 265 MG IV ×2 (08:02→18:40)
--- NOTE | 2022-01-29 09:11 | PC.NURSE ---
Addendum entered by Linn Smith 01/29/22 09:37: received faxed results from urgent care, sent picture to Leida TRIPATHI and placed paperwork in patients chart. Original Note: called to [facility] urgent care in [facility] and request culture results to be sent over to [facility] fax in overflow. was told results to be faxed over, awaiting fax at this time then will given to /BHUMI.
--- NOTE | 2022-01-29 10:49 | MHC.SHP ---
Pre-Procedural Eval Section A Date of Service: 01/29/22 The patient is an INPATIENT: Yes Changes since office visit: No Cold of Flu in the past 2 weeks, No New Medical Problems, No Changes in Medication and No Patient answered all questions The History & Physical has been completed within 30 days and I have reviewed it.: No Section B Chief Complaint: Finger infection Allergies: Allergies Allergy/AdvReac Type Severity Reaction Status Date / Time No Known Allergies Allergy Verified 11/16/20 23:52 Plan I have reviewed the history and physical and performed a pertinent physical examination on my patient. No changes have occurred unless specified.
--- NOTE | 2022-01-29 10:53 | W.PM.OPN ---
Operative Note Operative Note Date of Service: 01/29/22 Narrative: Operative Note Narrative: Preop diagnosis: 1. Left small finger infection Postop diagnosis: Same Procedure: 1. Left small finger I&D Surgeon: Flor Ponce MD Anesthesia: MAC Findings: hemorrhagic blisters from the D IP joint distally not involving the tip or the volar surface. No purulent drainage, a rather serosanguineous and then bloody drainage. Implants: none Tourniquet time: None minutes EBL: 5.0 ml Specimen: cultures taken x2 Drains: None Complications: None Disposition: Brought to the recovery room in stable condition Plan: admit back to floor to continue IV antibiotics check cultures obtain culture results and sensitivities from [facility] urgent care dated 01/27/2022. These cultures were taken before the patient was on antibiotics Indications: The patient is a 61 year old man with a left small finger infection . The risks and benefits of operative treatment, including but not limited to risk of damage to blood vessels, nerves, tendons, infection, recurrence, persistent pain or numbness, incomplete resolution of preoperative symptoms, or need for further surgery were discussed with the patient and they wished to proceed with surgery. Procedure: Once consent was obtained patient was brought back to the operating suite and placed in the operating table in a supine position. anesthesia was administered by the anesthesia team. A tourniquet was applied to the proximal aspect of the left upper extremity and the limb was prepped and draped in a standard surgical fashion. the tourniquet was not inflated. the left small finger was noted to have hemorrhagic blistering from about the D IP joint distally. This appeared to affect primarily the dorsal aspect of the digit. There was no hemorrhagic blistering along the palmar aspect of the digit or at the tip. Cap refill was brisk. Overall the finger was soft. I gave him an ulnar nerve block by infiltrating about the ulnar nerve at the wrist with some 0.5% plain Marcaine for postop pain control. I extended the dorsal ulnar incision proximally by about a cm. I used some iris scissors to ensure the wound was open to allow for drainage in the distal aspect. I also debrided some superficial skin that had sloughed. On the radial aspect of the finger I then made a 2 cm longitudinal incision through the superficial layer of skin to allow for drainage of the blisters. Both of these wounds drained only serosanguineous drainage. I did not see any gross purulence. Both of these wounds were cultured. The wounds were irrigated with normal saline. Sterile dressing was then applied. The patient appears to have tolerated the procedure well and with no complications. All digits were well vascularized conclusion of the case.
--- NOTE | 2022-01-29 11:13 | HO.ANESPROP2 ---
PMF Active Problems Active Problems: All Active Problems (Updated 01/28/22 @ 05:21 by Mavis De La O MD) Cellulitis of finger of left hand (Acute) Past Medical History Medical History Healthy adult Restless leg syndrome Family History Family History (Updated 01/28/22 @ 10:03 by Gabino Dey MD) Father Hypertension Family history of problems with anesthesia: No Surgical History History of Problems with Anesthesia: No Social History Social History Advance Directives: No Advance Directives Information Provided: No Meds Allergies Allergy/AdvReac Type Severity Reaction Status Date / Time No Known Allergies Allergy Verified 11/16/20 23:52 Active Medications: Current Medications Acetaminophen (Acetaminophen 325 Mg Tablet) 650 mg PO Q6H PRN PRN Reason: Pain, Mild (Pain Scale 1-3) Last Admin: 01/29/22 04:02 Dose: 650 mg Documented by: Gabapentin (Gabapentin 400 Mg Capsule) 400 mg PO BEDTIME [facility] Last Admin: 01/28/22 22:13 Dose: Not Given Documented by: Vancomycin HCl 750 mg/ Sodium (Chloride) 265 mls @ 265 mls/hr IV Q12H [facility] Last Infusion: 01/29/22 09:02 Dose: Infused Documented by: Piperacillin Sod/Tazobactam (Sod 3.375 gm/ Sodium Chloride) 50 mls @ 100 mls/hr IV Q6H [facility] Last Infusion: 01/29/22 06:20 Dose: Infused Documented by: Ondansetron HCl (Ondansetron Hcl 4 Mg/2 Ml Vial) 4 mg IVPUSH Q8H PRN PRN Reason: Nausea and Vomiting Oxycodone HCl (Oxycodone Hcl Immed Release 5 Mg Tablet) 5 mg PO Q6H PRN PRN Reason: Pain, Severe (Pain Scale 7-10) Last Admin: 01/29/22 04:03 Dose: 5 mg Documented by: Pharmacy Consult (Consult Rx Vancomycin Dosing) 1 each MISCELLANE DAILY PRN PRN Reason: Consult order Sodium Chloride (0.9 % Sodium Chloride Flush 3 Ml Syringe) 3 ml IVFLUSH QSHIFT [facility] Last Admin: 01/29/22 07:53 Dose: 3 ml Documented by: Home Medications Medication Instructions Recorded Confirmed Last Taken Type acetaminophen 300 mg-codeine 30 mg 1 tab PO Q6H PRN 01/28/22 01/28/22 01/28/22 History tablet gabapentin 400 mg capsule 1 cap PO BEDTIME 01/28/22 01/28/22 01/27/22 History sulfamethoxazole 800 1 tab PO BID 01/28/22 01/28/22 01/28/22 History mg-trimethoprim 160 mg tablet Exam Exam Date and Time: January 29, 2022 1113 Height,Weight and Vital Signs: Height 5 ft 7 in Weight 72.575 kg Last Vital Signs Temp 97.7 F 01/29/22 07:55 Pulse 60 01/29/22 07:55 Resp 15 01/29/22 07:55 BP 100/54 L 01/29/22 07:55 Pulse Ox 96 01/29/22 07:55 Pertinent Lab Results Pertinent Lab Results: Laboratory Tests 01/28/22 01/28/22 01/28/22 05:44 05:44 05:44 WBC 10.2 RBC 4.86 Hgb 14.7 Hct 42.5 MCV 87.4 MCH 30.2 MCHC 34.6 RDW 12.4 Plt Count 200 MPV 9.2 L Immature Gran % (Auto) 0.2 Neut % (Auto) 82.0 H Lymph % (Auto) 9.5 L Harper % (Auto) 7.6 Eos % (Auto) 0.6 Baso % (Auto) 0.1 Lymph # (Auto) 1.0 L Harper # (Auto) 0.8 Eos # (Auto) 0.1 Baso # (Auto) 0.0 Abs Immat Gran (auto) 0.02 Absolute Neuts (auto) 8.3 Absolute Nucleated RBC 0.000 Nucleated RBC % (auto) 0.0 ESR Sodium 139 Potassium 4.1 Chloride 105 Carbon Dioxide 24 Anion Gap 14 BUN 18 H Creatinine 1.08 Estim Creat Clear Calc 68.8 Estimated GFR > 60 Random Glucose 100 Lactic Acid 1.7 Calcium 9.4 Total Bilirubin 0.9 Direct Bilirubin 0.3 AST 31 ALT 26 Alkaline Phosphatase 52 C-Reactive Protein Total Protein 6.8 Albumin 4.3 COVID-19 (EFFIE) COVID-19 Clin Com 01/28/22 01/28/22 01/29/22 05:44 22:08 06:14 WBC 10.8 RBC 4.08 L Hgb 12.1 L Hct 36.0 L MCV 88.2 MCH 29.7 MCHC 33.6 RDW 12.4 Plt Count 171 MPV 9.1 L Immature Gran % (Auto) 0.5 H Neut % (Auto) 79.6 H Lymph % (Auto) 9.7 L Harper % (Auto) 10.0 Eos % (Auto) 0.1 Baso % (Auto) 0.1 Lymph # (Auto) 1.1 L Harper # (Auto) 1.1 Eos # (Auto) 0.0 Baso # (Auto) 0.0 Abs Immat Gran (auto) 0.05 H Absolute Neuts (auto) 8.6 H Absolute Nucleated RBC 0.000 Nucleated RBC % (auto) 0.0 ESR Sodium 138 Potassium 4.0 Chloride 104 Carbon Dioxide 26 Anion Gap 12 BUN 16 Creatinine 1.27 Estim Creat Clear Calc 58.5 Estimated GFR 58 Random Glucose 123 H Lactic Acid Calcium 8.7 D Total Bilirubin Direct Bilirubin AST ALT Alkaline Phosphatase C-Reactive Protein Total Protein Albumin COVID-19 (EFFIE) Negative COVID-19 [employer] Com See Note 01/29/22 01/29/22 06:14 06:14 WBC RBC Hgb Hct MCV MCH MCHC RDW Plt Count MPV Immature Gran % (Auto) Neut % (Auto) Lymph % (Auto) Harper % (Auto) Eos % (Auto) Baso % (Auto) Lymph # (Auto) Harper # (Auto) Eos # (Auto) Baso # (Auto) Abs Immat Gran (auto) Absolute Neuts (auto) Absolute Nucleated RBC Nucleated RBC % (auto) ESR 12 Sodium 138 Potassium 4.0 Chloride 106 Carbon Dioxide 25 Anion Gap 11 L BUN 18 H Creatinine 1.34 Estim Creat Clear Calc 55.4 Estimated GFR 55 Random Glucose 112 Lactic Acid Calcium 8.6 Total Bilirubin Direct Bilirubin AST ALT Alkaline Phosphatase C-Reactive Protein 9.49 H Total Protein Albumin COVID-19 (EFFIE) COVID-19 Clin Com Airway Mallampati Class: II TM Dist: >3cm Neck ROM: Full Assessment and Plan Assessment Anesthesia Assessment: Anesthesia Plan Discussed and Chart Reviewed Final Anesthetic Review Family History of Problems with Anesthesia: No History of Problems with Anesthesia: No NPO: Yes ASA Class: II and Emergency Final Preanesthetic Review: No Changes in Pt Med Stat, Meds/Allgs Chart Reviewed, Consent Obtained/Reviewed and Anes Risks/Benef Reviewed Patient Risk: Low Procedure Risk: Low Anesthetic Plan Anesthetic Plan: MAC: Disposition: Standard PACU
--- NOTE | 2022-01-29 11:57 | P.PNOP_ITS ---
Subjective Subjective Date of Service: 01/29/22 Principal diagnosis: Left small finger infection Interval history: The patient had been admitted, but was in the overflow area. He was seen by me this morning. He said he was feeling a little better. He reports that the previous night he had had chills and a fever, but felt like that had broken. He reports that when he 1st came to the hospital about 24 hours earlier that his pain was basically 11/10. this morning he felt that his pain was more like A 4/10. Physical Exam Vital Signs: Vital Signs: Last Vital Signs Temp 98.3 F 01/29/22 11:51 Pulse 64 01/29/22 11:51 Resp 16 01/29/22 11:51 BP 108/68 01/29/22 11:51 Pulse Ox 95 01/29/22 11:51 BMI result Body Mass Index 25.0 Extrem: Other: He has hemorrhagic blistering about the dorsal aspect of the left small finger extending from about the D IP joint level distally. This does not appear to involve the volar aspect of the digit or the tip of the digit. He has some swelling and erythema extending up the small finger to the ulnar aspect of the hand. The erythema appears to have receded slightly from the area marked in ink over the ulnar aspect of the hand and the forearm. Axial loading of the small finger does not cause pain in either the PIP or D IP joints. He notes that he has some discomfort in the PIP joint but he feels like it is mostly because it is swollen. He says that he has sensation to the tip of the small finger. He says it is not normal but it is close to normal. His finger is swollen but he can actively flex and extend the digit some. The ring middle index finger and thumb are not particularly swollen and he has full active motion of these digits. His C-reactive protein this morning was 9.49, ESR 12, WBC 10.8 while he had a fever of 102 last night, this morning he was afebrile , and feeling better Procedures Date of Service Date of Service: 01/29/22 Progress Note: A&P Assessment and plan (1) Infection of left hand: Status: Acute Plan assessment and plan: 1. Left small finger infection infection was noted to get significantly worse from yesterday morning to yesterday evening. This morning his pain is improved, the erythema in his hand appears to have receded back from where was last night to a small degree. He no longer has a fever and is feeling better. His pain has gone from an 11/10 yesterday morning to a 4/10 this morning Cap refill is brisk and sensation, while not normal is stated to be almost normal. we took him to the operating room this morning for an I and D and to obtain cultures. He had hemorrhagic blistering from the D IP joint distally. These were filled with serosanguineous fluid. There was good bleeding. Cap refill is brisk to the digit and the digit was soft. We will monitor culture results. Of particular interest are the culture results and sensitivities from the cultures [facility]22. Continue IV antibiotics. Fall Risk Details Current Medications: Current Medications Acetaminophen (Acetaminophen 325 Mg Tablet) 650 mg PO Q6H PRN PRN Reason: Pain, Mild (Pain Scale 1-3) Last Admin: 01/29/22 04:02 Dose: 650 mg Documented by: Fentanyl (Fentanyl Citrate/Pf 100 Mcg/2 Ml Vial) 50 mcg IVPUSH Q5M PRN; Protocol PRN Reason: Pain, Severe (Pain Scale 7-10) Gabapentin (Gabapentin 400 Mg Capsule) 400 mg PO BEDTIME [facility] Last Admin: 01/28/22 22:13 Dose: Not Given Documented by: Vancomycin HCl 750 mg/ Sodium (Chloride) 265 mls @ 265 mls/hr IV Q12H [facility] Last Infusion: 01/29/22 09:02 Dose: Infused Documented by: Piperacillin Sod/Tazobactam (Sod 3.375 gm/ Sodium Chloride) 50 mls @ 100 mls/hr IV Q6H [facility] Last Infusion: 01/29/22 06:20 Dose: Infused Documented by: Ondansetron HCl (Ondansetron Hcl 4 Mg/2 Ml Vial) 4 mg IVPUSH Q8H PRN PRN Reason: Nausea and Vomiting Ondansetron HCl (Ondansetron Hcl 4 Mg/2 Ml Vial) 4 mg IVPUSH ONCE PRN PRN Reason: Nausea and Vomiting Oxycodone HCl (Oxycodone Hcl Immed Release 5 Mg Tablet) 5 mg PO Q6H PRN PRN Reason: Pain, Severe (Pain Scale 7-10) Last Admin: 01/29/22 04:03 Dose: 5 mg Documented by: Oxycodone HCl (Oxycodone Hcl Immed Release 5 Mg Tablet) 10 mg PO ONCE PRN PRN Reason: Pain, Severe (Pain Scale 7-10) Pharmacy Consult (Consult Rx Vancomycin Dosing) 1 each MISCELLANE DAILY PRN PRN Reason: Consult order Sodium Chloride (0.9 % Sodium Chloride Flush 3 Ml Syringe) [facility] Last Admin: 01/29/22 07:53 Dose: 3 ml Documented by: Time Spent With Patient Time: Total time spent is greater than 50% in coordination of care (as documented) at patient's floor/unit and/or counseling patient: Quality Stroke Does the patient have a stroke diagnosis?: No VTE Prior VTE?: No VTE Risk Level:: Medical - moderate - high VTE Device Contraindication: Treatment Not Indicated VTE Drug Contraindication: N/A - Med Ordered
--- NOTE | 2022-01-29 12:22 | P.PNIM_ITS ---
Subjective Subjective Date of Service: 01/29/22 Interval History: Seen and evaluated this morning Report pain in his hand, swelling mildly improved Denies any fever or chills Continue to monitor Review of Systems No fever, chills or weakness No chest pain, palpitation No shortness of breath or coughing No abdominal pain, nausea or vomiting No urinary symptoms Pain in his little finger Physical Exam Vital Signs: Vital Signs: Last Vital Signs Temp 97.8 F 01/29/22 12:12 Pulse 68 01/29/22 12:12 Resp 18 01/29/22 12:12 BP 131/65 01/29/22 12:12 Pulse Ox 97 01/29/22 12:12 BMI result Body Mass Index 25.0 Const: Other: Constitutional : Alert, oriented, not in distress Neck : Normal inspection, Supple Cardiovascular : RRR, S1 S2, no lower extremity edema Respiratory : Good bilateral air entry, no crackles, wheezes or rhonchi Gastrointestinal: soft, lax, Normal bowel sounds, Non tender Skin : Warm, Dry, left little finger erythema, with decreased swelling of the top of the finger with erythema extending to the wrist and minimally forearm, significant bleed decreased range of movement and pain with touch. Neurological : Alert & oriented x3, No focal deficit Objective Data Active Medications Acetaminophen (Acetaminophen 325 Mg Tablet) 650 mg PO Q6H PRN PRN Reason: Pain, Mild (Pain Scale 1-3) Last Admin: 01/29/22 04:02 Dose: 650 mg Documented by: ANIKA Fentanyl (Fentanyl Citrate/Pf 100 Mcg/2 Ml Vial) 50 mcg IVPUSH Q5M PRN; Protocol PRN Reason: Pain, Severe (Pain Scale 7-10) Gabapentin (Gabapentin 400 Mg Capsule) 400 mg PO BEDTIME [facility] Last Admin: 01/28/22 22:13 Dose: Not Given Documented by: ANITHA Non-Admin Reason: Patient Refused Vancomycin HCl 750 mg/ Sodium (Chloride) 265 mls @ 265 mls/hr IV Q12H [facility] Last Infusion: 01/29/22 09:02 Dose: 0 mls/hr Documented by: STEVEOPERhonda Piperacillin Sod/Tazobactam (Sod 3.375 gm/ Sodium Chloride) 50 mls @ 100 mls/hr IV Q6H [facility] Last Infusion: 01/29/22 06:20 Dose: 0 mls/hr Documented by: ANIKA Ondansetron HCl (Ondansetron Hcl 4 Mg/2 Ml Vial) 4 mg IVPUSH Q8H PRN PRN Reason: Nausea and Vomiting Ondansetron HCl (Ondansetron Hcl 4 Mg/2 Ml Vial) 4 mg IVPUSH ONCE PRN PRN Reason: Nausea and Vomiting Oxycodone HCl (Oxycodone Hcl Immed Release 5 Mg Tablet) 5 mg PO Q6H PRN PRN Reason: Pain, Severe (Pain Scale 7-10) Last Admin: 01/29/22 04:03 Dose: 5 mg Documented by: ANIKA Oxycodone HCl (Oxycodone Hcl Immed Release 5 Mg Tablet) 10 mg PO ONCE PRN PRN Reason: Pain, Severe (Pain Scale 7-10) Pharmacy Consult (Consult Rx Vancomycin Dosing) 1 each MISCELLANE DAILY PRN PRN Reason: Consult order Sodium Chloride (0.9 % Sodium Chloride Flush 3 Ml Syringe) 3 ml IVFLUSH [facility] Last Admin: 01/29/22 07:53 Dose: 3 ml Documented by: RAN Labs CBC & Chem 7: 01/29/22 06:14 01/29/22 06:14 Labs: Laboratory Results - last 24 hr 01/28/22 01/29/22 01/29/22 22:08 06:14 06:14 MCV 88.2 MCH 29.7 MCHC 33.6 RDW 12.4 Plt Count 171 MPV 9.1 L Immature Gran % (Auto) 0.5 H Neut % (Auto) 79.6 H Lymph % (Auto) 9.7 L [place] % (Auto) 10.0 Eos % (Auto) 0.1 Baso % (Auto) 0.1 Lymph # (Auto) 1.1 L [place] # (Auto) 1.1 Eos # (Auto) 0.0 Baso # (Auto) 0.0 Abs Immat Gran (auto) 0.05 H Absolute Neuts (auto) 8.6 H Absolute Nucleated RBC 0.000 Nucleated RBC % (auto) 0.0 ESR 12 Anion Gap 12 Estim Creat Clear Calc 58.5 Estimated GFR 58 Random Glucose 123 H Calcium 8.7 D C-Reactive Protein 01/29/22 06:14 MCV MCH MCHC RDW Plt Count MPV Immature Gran % (Auto) Neut % (Auto) Lymph % (Auto) [place] % (Auto) Eos % (Auto) Baso % (Auto) Lymph # (Auto) [place] # (Auto) Eos # (Auto) Baso # (Auto) Abs Immat Gran (auto) Absolute Neuts (auto) Absolute Nucleated RBC Nucleated RBC % (auto) ESR Anion Gap 11 L Estim Creat Clear Calc 55.4 Estimated GFR 55 Random Glucose 112 Calcium 8.6 C-Reactive Protein 9.49 H Microbiology Microbiology Results: Microbiology 01/28/22 05:44 Blood Culture - Preliminary Blood - Venous No growth after 24 hours. 01/28/22 05:44 Blood Culture - Preliminary Blood - Venous No growth after 24 hours. Assessment and Plan (1) Infection of left hand: Status: Acute (2) Cellulitis of finger of left hand: Status: Acute Plan A 61 years old patient with PMH of restless leg who presents to the hospital complaining of little left finger pain and swelling for the last day. Left hand cellulitis Post debridement today CT scan not showing Tinoynovitis Pending wound and blood cultures hand surgery evaluation appreciated Continue broad-spectrum antibiotic of vancomycin Zosyn Consider clindamycin if started to show signs of deep infection Restless leg syndrome Continue gabapentin DVT PPX Heparin Need for hospital stay for evaluation and treatment above cellulitis and de crease range of motion in the finger given possible decompensation post surgical intervention. Quality Stroke Does the patient have a stroke diagnosis?: No VTE Prior VTE?: No VTE Risk Level:: Medical - moderate - high VTE Device Contraindication: Treatment Not Indicated VTE Drug Contraindication: N/A - Med Ordered
[2022-01-29 17:35] LABS: Vancomycin Trough 6.9 mcg/mL (10.0-20.0)
[2022-01-30] VITALS: BP 114/62; PULSE 66; RESP 17; TEMP 36.4; O2SAT 96
[2022-01-30 04:00] VITALS: BP 130/71; PULSE 63; RESP 17; TEMP 36.3; O2SAT 96
[2022-01-30] MEDS: Piperacillin Sodium/Tazobactam 3.375 GM in 0.9 % Sodium Chloride 50 ML IV ×2 (05:56→13:08)
[2022-01-30 05:59] LABS: Hematocrit 37.9 % (42.0-52.0); Hemoglobin 12.8 g/dl (14.0-18.0); Mean Corpuscular HGB Conc 33.8 g/dl (31.0-36.0); Mean Corpuscular Hemoglobin 30.3 pg (27.0-33.0); Mean Corpuscular Volume 89.8 fL (80.0-98.0); Mean Platelet Volume 9.4 fL (9.4-12.4); Platelet Count 189 X10*3/uL (160-400); Red Blood Count 4.22 X10*6/uL (4.60-5.80); Red Cell Distribution Width 12.3 % (11.0-16.0); White Blood Count 10.9 X10*3/uL (4.8-10.8)
[2022-01-30 06:17] LABS: Anion Gap 12 (12-20); Blood Urea Nitrogen 17 mg/dL (9-16); Carbon Dioxide 26 mmol/L (22-29); Chloride 108 mmol/L (96-108); Creatinine Clr Calc Pharmacy 72.1; Estimated Glomerular Filt Rate > 60; Glucose Random 127 mg/dL (60-115); Potassium 4.8 mmol/L (3.3-5.1); Sodium 141 mmol/L (135-145)
[2022-01-30] MEDS: vancomycin HCL 750 MG in 0.9 % Sodium Chloride 250 ML 265 MG IV (06:27)
[2022-01-30 07:46] VITALS: BP 129/78; PULSE 60; RESP 18; TEMP 36.7; O2SAT 98
[2022-01-30] MEDS: 0.9 % Sodium Chloride Flush 3 ML SYRINGE IVFLUSH ×2 (09:02→16:44)
--- NOTE | 2022-01-30 09:25 | MHC.CM.PN ---
EMR REVIEWED, PT ADMITTED W/FINGER INFECTION, CM MET W/PT WHO IS A&0X4, PT REPORTS HE IS INDEPENDENT W/ALL CARE, PT DENIES USE OF DME AND HOME SERVICES, PT VERIFIES HIS PCP IS EMIR DOOLEY, ARVIND LUCIA [phone] IS HIS HCP, COPY REQUESTED AND PT REPORTS HE IS FULLY VACCINATE FOR COVID AND RECEIVED MODERNA X3. DISCUSSED DCP OF HOME VS HOME W/IV ABX W/PT HOWEVER SO FAR BLOOD CULTURES NEG AND WOUND APPEARS TO BE CELLULITIUS ONLY, PT DOES REPORT HE HAS NO PREFERENCE OF VNA/[facility] COMPANIES. D/C PLAN: ANTIC HOME W/ORAL ABX AND PT'S FOR TRANSPORT.
--- NOTE | 2022-01-30 09:31 | HO.POSTANES ---
Post Anesthesia Evaluation Post Anesthesia Evaluation Vital Signs: Vital Signs Temp Pulse Resp BP Pulse Ox 01/30/22 07:46 98.1 F 60 18 129/78 98 01/30/22 04:00 97.4 F 63 17 130/71 96 01/30/22 00:00 97.5 F 66 17 114/62 96 Anesthesia: General LMA Mental Status: Awake Pain Control: Satisfactory Nausea/Vomiting: None Hydration: Adequate Anesthesia-Related Issues: No Anes. Related Issues
--- NOTE | 2022-01-30 10:03 | P.PNOP_ITS ---
Subjective Subjective Date of Service: 01/30/22 Principal diagnosis: Left small finger infection Interval history: POD 1 s/p I&D left small finger Pain is improving bandage intact no concerns Physical Exam Vital Signs: Vital Signs: Last Vital Signs Temp 98.1 F 01/30/22 07:46 Pulse 60 01/30/22 07:46 Resp 18 01/30/22 07:46 BP 129/78 01/30/22 07:46 Pulse Ox 98 01/30/22 07:46 BMI result Body Mass Index 25.0 Extrem: Other: left small finger hematoma present. unable to bend at the pip and dip due to swelling. NVI. Procedures Date of Service Date of Service: 01/30/22 Progress Note: A&P Assessment and plan (1) Cellulitis of finger of left hand: Status: Acute Assessment and Plan: continue dry dressing cultures so far negative for organisms Fall Risk Details Current Medications: Current Medications Acetaminophen (Acetaminophen 325 Mg Tablet) 650 mg PO Q6H PRN PRN Reason: Pain, Mild (Pain Scale 1-3) Last Admin: 01/29/22 04:02 Dose: 650 mg Documented by: Fentanyl (Fentanyl Citrate/Pf 100 Mcg/2 Ml Vial) 50 mcg IVPUSH Q5M PRN; Protocol PRN Reason: Pain, Severe (Pain Scale 7-10) Gabapentin (Gabapentin 400 Mg Capsule) 400 mg PO BEDTIME [facility] Last Admin: 01/29/22 20:58 Dose: Not Given Documented by: Vancomycin HCl 750 mg/ Sodium (Chloride) 265 mls @ 265 mls/hr IV Q12H [facility] Last Infusion: 01/30/22 07:28 Dose: Infused Documented by: Piperacillin Sod/Tazobactam (Sod 3.375 gm/ Sodium Chloride) 50 mls @ 100 mls/hr IV Q6H [facility] Last Infusion: 01/30/22 06:26 Dose: Infused Documented by: Ondansetron HCl (Ondansetron Hcl 4 Mg/2 Ml Vial) 4 mg IVPUSH Q8H PRN PRN Reason: Nausea and Vomiting Ondansetron HCl (Ondansetron Hcl 4 Mg/2 Ml Vial) 4 mg IVPUSH ONCE PRN PRN Reason: Nausea and Vomiting Oxycodone HCl (Oxycodone Hcl Immed Release 5 Mg Tablet) 5 mg PO Q6H PRN PRN Reason: Pain, Severe (Pain Scale 7-10) Last Admin: 01/29/22 20:46 Dose: 5 mg Documented by: Oxycodone HCl (Oxycodone Hcl Immed Release 5 Mg Tablet) 10 mg PO ONCE PRN PRN Reason: Pain, Severe (Pain Scale 7-10) Pharmacy Consult (Consult Rx Vancomycin Dosing) 1 each MISCELLANE DAILY PRN PRN Reason: Consult order Sodium Chloride (0.9 % Sodium Chloride Flush 3 Ml Syringe) 3 ml IVFLUSH [facility] Last Admin: 01/30/22 09:02 Dose: 3 ml Documented by: Time Spent With Patient Time: Total time spent is greater than 50% in coordination of care (as documented) at patient's floor/unit and/or counseling patient: Quality Stroke Does the patient have a stroke diagnosis?: No VTE Prior VTE?: No VTE Risk Level:: Medical - moderate - high VTE Device Contraindication: Treatment Not Indicated VTE Drug Contraindication: N/A - Med Ordered
[2022-01-30 11:06] VITALS: BP 115/66; PULSE 65; RESP 18; TEMP 36.9; O2SAT 99
--- NOTE | 2022-01-30 11:23 | HO.PM.IMPN ---
Subjective Subjective Date of Service: 01/30/22 Interval History: Seen and evaluated this morning Report pain in his hand, swelling improving Denies any fever or chills Continue to monitor Review of Systems No fever, chills or weakness No chest pain, palpitation No shortness of breath or coughing No abdominal pain, nausea or vomiting No urinary symptoms Pain in his little finger Physical Exam Vital Signs: Vital Signs: Last Vital Signs Temp 98.5 F 01/30/22 11:06 Pulse 65 01/30/22 11:06 Resp 18 01/30/22 11:06 BP 115/66 01/30/22 11:06 Pulse Ox 99 01/30/22 11:06 BMI result Body Mass Index 25.0 Const: Other: Constitutional : Alert, oriented, not in distress Neck : Normal inspection, Supple Cardiovascular : RRR, S1 S2, no lower extremity edema Respiratory : Good bilateral air entry, no crackles, wheezes or rhonchi Gastrointestinal: soft, lax, Normal bowel sounds, Non tender Skin : Warm, Dry, left little finger covered with dressing with no reported drainage Neurological : Alert & oriented x3, No focal deficit Objective Data Active Medications Acetaminophen (Acetaminophen 325 Mg Tablet) 650 mg PO Q6H PRN PRN Reason: Pain, Mild (Pain Scale 1-3) Last Admin: 01/29/22 04:02 Dose: 650 mg Documented by: ANIKA Fentanyl (Fentanyl Citrate/Pf 100 Mcg/2 Ml Vial) 50 mcg IVPUSH Q5M PRN; Protocol PRN Reason: Pain, Severe (Pain Scale 7-10) Gabapentin (Gabapentin 400 Mg Capsule) 400 mg PO BEDTIME [facility] Last Admin: 01/29/22 20:58 Dose: Not Given Documented by: ASHLEY Non-Admin Reason: Patient Refused Vancomycin HCl 750 mg/ Sodium (Chloride) 265 mls @ 265 mls/hr IV Q12H [facility] Last Infusion: 01/30/22 07:28 Dose: 0 mls/hr Documented by: JAVID Piperacillin Sod/Tazobactam (Sod 3.375 gm/ Sodium Chloride) 50 mls @ 100 mls/hr IV Q6H [facility] Last Infusion: 01/30/22 06:26 Dose: 0 mls/hr Documented by: ASHLEY Ondansetron HCl (Ondansetron Hcl 4 Mg/2 Ml Vial) 4 mg IVPUSH Q8H PRN PRN Reason: Nausea and Vomiting Ondansetron HCl (Ondansetron Hcl 4 Mg/2 Ml Vial) 4 mg IVPUSH ONCE PRN PRN Reason: Nausea and Vomiting Oxycodone HCl (Oxycodone Hcl Immed Release 5 Mg Tablet) 5 mg PO Q6H PRN PRN Reason: Pain, Severe (Pain Scale 7-10) Last Admin: 01/29/22 20:46 Dose: 5 mg Documented by: ASHLEY Oxycodone HCl (Oxycodone Hcl Immed Release 5 Mg Tablet) 10 mg PO ONCE PRN PRN Reason: Pain, Severe (Pain Scale 7-10) Pharmacy Consult (Consult Rx Vancomycin Dosing) 1 each MISCELLANE DAILY PRN PRN Reason: Consult order Sodium Chloride (0.9 % Sodium Chloride Flush 3 Ml Syringe) [facility] Last Admin: 01/30/22 09:02 Dose: 3 ml Documented by: JAVID Labs CBC & Chem 7: 01/30/22 05:34 01/30/22 05:34 Labs: Laboratory Results - last 24 hr 01/29/22 01/30/22 01/30/22 17:04 05:34 05:34 MCV 89.8 MCH 30.3 MCHC 33.8 RDW 12.3 Plt Count 189 MPV 9.4 Absolute Nucleated RBC 0.000 Nucleated RBC % (auto) 0.0 Anion Gap 12 Estim Creat Clear Calc 72.1 Estimated GFR > 60 Random Glucose 127 H Calcium 9.0 Vancomycin Trough 6.9 L Microbiology Microbiology Results: Microbiology 01/29/22 Unknown Gram Stain - Final Finger Left Little Routine Culture - Preliminary Culture in progress. 01/29/22 Unknown Gram Stain - Final Finger Left Little Routine Culture - Preliminary Culture in progress. 01/28/22 05:44 Blood Culture - Preliminary Blood - Venous No growth after 48 hours. 01/28/22 05:44 Blood Culture - Preliminary Blood - Venous No growth after 48 hours. Assessment and Plan (1) Infection of left hand: Status: Acute (2) Cellulitis of finger of left hand: Status: Acute Plan A 61 years old patient with PMH of restless leg who presents to the hospital complaining of little left finger pain and swelling for the last day. Left hand cellulitis Post debridement today CT scan not showing Tinoynovitis Pending wound and blood cultures hand surgery evaluation appreciated Continue broad-spectrum antibiotic of vancomycin Zosyn Restless leg syndrome Continue gabapentin DVT PPX Heparin Need for hospital stay for evaluation and treatment above cellulitis and decrease range of motion in the finger given possible decompensation post surgical intervention. Quality Stroke Does the patient have a stroke diagnosis?: No VTE Prior VTE?: No VTE Risk Level:: Medical - moderate - high VTE Device Contraindication: Treatment Not Indicated VTE Drug Contraindication: N/A - Med Ordered
[2022-01-30 16:00] VITALS: BP 128/73; PULSE 69; RESP 16; TEMP 36.7; O2SAT 96
[2022-01-30 16:09] LABS: Vancomycin Trough 7.9 mcg/mL (10.0-20.0)
[2022-01-30] MEDS: cefTRIAXone sodium 2 GM in 0.9 % Sodium Chloride 50 ML IV (16:43)
[2022-01-30] MEDS: Clindamycin Phosphate/D5W 300 MG/50 ML PIGGYBACK 100 MG IV ×2 (16:44→21:54)
[2022-01-30 19:16] VITALS: BP 127/78; PULSE 65; RESP 16; TEMP 36.4; O2SAT 99
[2022-01-30] MEDS: oxyCODONE HCl Immed Release 5 MG TABLET PO (21:54)
[2022-01-31] VITALS: BP 119/73; PULSE 57; RESP 17; TEMP 36.4; O2SAT 98
[2022-01-31] MEDS: 0.9 % Sodium Chloride Flush 3 ML SYRINGE IVFLUSH ×2 (00:09→07:43)
[2022-01-31 03:50] VITALS: BP 119/66; PULSE 55; RESP 18; TEMP 36.7; O2SAT 97
[2022-01-31] MEDS: Clindamycin Phosphate/D5W 300 MG/50 ML PIGGYBACK 100 MG IV ×2 (03:51→09:39)
[2022-01-31 06:22] LABS: Hematocrit 36.5 % (42.0-52.0); Hemoglobin 12.1 g/dl (14.0-18.0); Mean Corpuscular HGB Conc 33.2 g/dl (31.0-36.0); Mean Corpuscular Hemoglobin 29.7 pg (27.0-33.0); Mean Corpuscular Volume 89.7 fL (80.0-98.0); Platelet Count 199 X10*3/uL (160-400); Red Blood Count 4.07 X10*6/uL (4.60-5.80); Red Cell Distribution Width 12.3 % (11.0-16.0); White Blood Count 8.1 X10*3/uL (4.8-10.8)
[2022-01-31 06:39] LABS: C Reactive Protein 2.83 mg/dL (< or = 0.50)
[2022-01-31 07:26] VITALS: BP 121/71; PULSE 58; RESP 16; TEMP 37.1; O2SAT 95
[2022-01-31 07:57] LABS: Erythrocyte Sedimentation Rate 16 MM/HR (0-15)
--- NOTE | 2022-01-31 09:58 | P.DS_ITS ---
DS: Providers Provider Date of Service: 01/31/22 Date of admission: 01/28/22 09:41 Primary care physician: Ross Burt MD Consults: 01/28/22 09:41 Consult to Orthopedics Routine Consulting Provider: Zuleima Jalloh Reason for consultation: Little finger swelling, decrease ROM for your kind eval DS: Diagnosis Discharge Diagnosis (1) Infection of left hand: Status: Acute (2) Cellulitis of finger of left hand: Status: Acute DS: Summary Hospital Course Hospital Course: Admission note HPI A 61 years old patient with PMH of restless leg who presents to the hospital complaining of little left finger pain and swelling for the last day.? He reported that he developed a pimple over the fingers day before presentation to the hospital that he went to urgent care who did drainage for the small abscess and started him on oral antibiotics.? He went back home and started the pills but noticed a swelling, erythema and pain are increasing an expanding to his wrist so he decided to come to the hospital for further evaluation and treatment.? He denies any fever, chills, abdominal pain, nausea or vomiting or change in bowel habit.? He will be admitted for further evaluation and treatment. Hospital course The patient was admitted to the hospital for treatment of little left finger pain and swelling with associated cyst hand cellulitis. CT scan was done showing no symptoms of tenosynovitis or gas. Evaluated by hand surgeon who did debridement. Cultures from the wound grew group G Streptococcus which was treated primarily with broad-spectrum antibiotic then narrowed down to ceftriaxone and clindamycin. Noticed significant improvement in the wound at the day of discharge. To be discharged home on Augmentin for 6 more days to finish total of 10 days of antibiotics. To follow-up with orthopedic team as outpatient. Time Spent with Patient Time attestation: Total time spent providing and/or coordinating discharge services: Discharge coordination time: Greater than 30 minutes Quality: Stroke Does the patient have a stroke diagnosis?: No Physical Exam Vital Signs: Vital Signs: Last Vital Signs Temp 98.7 F 01/31/22 07:26 Pulse 58 01/31/22 07:26 Resp 16 01/31/22 07:26 BP 121/71 01/31/22 07:26 Pulse Ox 95 01/31/22 07:26 BMI result Body Mass Index 25.0 Const: Other: Constitutional : Alert, oriented, not in distress Neck : Normal inspection, Supple Cardiovascular : RRR, S1 S2, no lower extremity edema Respiratory : Good bilateral air entry, no crackles, wheezes or rhonchi Gastrointestinal: soft, lax, Normal bowel sounds, Non tender Skin : Warm, Dry, left little finger covered with dressing with no drainage Neurological : Alert & oriented x3, No focal deficit DS: Data Data Completed and Pending Labs on day of discharge: Laboratory Results - last 24 hr 01/30/22 01/31/22 01/31/22 15:38 06:05 06:05 WBC 8.1 RBC 4.07 L Hgb 12.1 L Hct 36.5 L MCV 89.7 MCH 29.7 MCHC 33.2 RDW 12.3 Plt Count 199 MPV 9.0 L Absolute Nucleated RBC 0.000 Nucleated RBC % (auto) 0.0 ESR C-Reactive Protein 2.83 H Vancomycin Trough 7.9 L 01/31/22 06:05 WBC RBC Hgb Hct MCV MCH MCHC RDW Plt Count MPV Absolute Nucleated RBC Nucleated RBC % (auto) ESR 16 H C-Reactive Protein Vancomycin Trough Preliminary micro results at discharge 01/28/22 05:44 Blood Culture - Preliminary Blood - Venous No growth after 48 hours. 01/28/22 05:44 Blood Culture - Preliminary Blood - Venous No growth after 48 hours. Discharge Plan Discharge Patient Disposition: Home Health Service Discharge Diagnosis: Cellulitis Referrals: [facility] [Outside] - 1 Day ([facility] FOR FINGER CELLULTIS AND WOUND CARE) Ross Burt MD [Primary Care Provider] - 1 Week Zuleima Jalloh PA-C [Physician Microfabrication Engineer Manager] - 1 Week Discharge Medications: New amoxicillin-pot clavulanate 875-125 mg tablet 1 tab PO BID Qty: 12 0RF Continued acetaminophen-codeine 300-30 mg tablet 1 tab PO Q6H PRN (Reason: Pain) 0RF gabapentin 400 mg capsule 1 cap PO BEDTIME 0RF Discontinued sulfamethoxazole-trimethoprim 800-160 mg tablet 1 tab PO BID 0RF Discharge Orders: Discharge Order (Routine); Ordered 01/31/22 Ordered By: Gabino Dey Diet: advance to usual diet Activity on Discharge: As tolerated Stand Alone Forms: Patient Portal Discharge page Care Plan Goals: Read below Health Concerns: Read below Plan of Treatment: Read below Assessment: You were admitted to the hospital for evaluation of cellulitis the small finger of the left hand. Evaluated by hand surgeon with did debridement for the wound. Your treated with IV antibiotics with good response over the course of hospital stay. Cultures from the wound grew Streptococcus G which is sensitive to antibiotics. Continue Augmentin for 6 more days To follow-up with orthopedic team in 1 week. PERFORM DAILY DRY DRESSING CHANGES Discharge Date/Time: 01/31/22 12:15
--- NOTE | 2022-01-31 09:58 | MHC.CM.PN ---
Addendum entered by Nicki Welch RN 01/31/22 11:01: PER HOSPITALIST PT NEEDS VNA FOR CELLULITIS OF FINGER AND WOUND CARE, [facility] CHECKING ON AVAILABILITY Original Note: PER HOSPITALIST PT MEDICALLY CLEARED FOR D/C HOME SELF-CARE W/ORAL ABX, PT'S FOR TRANSPORT.
--- NOTE | 2022-01-31 10:18 | P.F2F_ITS ---
Service Date Service Date: 01/31/22 Encounter Date of encounter: 01/31/22 Reasons for Services Signs and symptoms assessed: Little finger cellulitis Reason for care home: wound care Homebound: Leaving the home is medically contraindicated at this time without the asist of a device and/or another person due th the listed conditions above and below. Reason homebound: other Certification: Based on the above findings, I certify that this patient is confined to the home and needs intermittent care home care, physical therapy and/or speech therapy, or continues to need occupational therapy. The patient is under my care, and I have initiated the establishment of the plan of care. The patient will be followed by a physician who will periodically review the plan of care.
[2022-01-31 10:51] VITALS: BP 122/74; PULSE 62; RESP 18; TEMP 36.8; O2SAT 97
== END 2022-01-31 12:15 | disposition home health service (06) | DRG 383 ==
LOC: HO.ED 05:21 → HO.EDOVER 09:48 → HO.S3 01-29 09:10
PROVIDERS: Orthopaedic Surgery; Physician Assistant; Admitting Provider Student in an Organized Health Care Education/Training Program; Emergency Provider Emergency Medicine; PCP Internal Medicine; Visit Provider Student in an Organized Health Care Education/Training Program
PROC: (CPT 10140; principal; 2022-01-29 11:00)
DX: L03.012 Cellulitis of left finger (principal); B95.4 Other streptococcus as the cause of diseases classified elsewhere; M79.81 Nontraumatic hematoma of soft tissue; G25.81 Restless legs syndrome; Z20.822 Contact with and (suspected) exposure to COVID-19; Z79.899 Other long term (current) drug therapy
CPT/HCPCS: 10140; 36415; 73201; 80048; 80076; 80202; 83605; 85025; 85027; 85652; 86140; 87040; 87071; 87147; 87205; 87635; 96361; 96365; 96366; 96375; 99218; 99284; 99285; J0696; J1100; J1885; J2250; J2405; J2543; J3010; J3370; Q9967

== ENCOUNTER 2022-02-08 10:33 | Outpatient (REF) | payer OTHER, SELFPAY ==
--- NOTE | ~2022-02-08 | XR_ITS ---
EXAMINATION: XR HAND, LEFT CLINICAL INFORMATION: Left hand pain. COMPARISON: None TECHNIQUE: PA, lateral, and oblique views of the left hand. FINDINGS: Decrease joint space, subchondral sclerosis, osteophyte formations, consistent with moderate to severe osteoarthrosis is noted at the DIP joint of the left fifth digit. The head of the middle phalanx shows extensive subchondral radiolucency, although may represent subchondral cyst however, low-grade neoplasm may also have similar appearance. XR/XR hand LT min 3V Significant overlying soft tissue swelling is present. 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 Expansile subchondral radiolucency at the head of the middle phalanx of the left fifth digit, indeterminate etiology.
== END 2022-02-08 10:34 | disposition home or self-care (01) ==
LOC: HO.HOSX 10:33
PROVIDERS: PCP Internal Medicine; Visit Provider Physician Assistant
DX: M19.042 Primary osteoarthritis, left hand (principal); L03.012 Cellulitis of left finger
CPT/HCPCS: 73130

== ENCOUNTER → 2022-02-15 10:34 | Outpatient (BNVA) | payer OTHER, SELFPAY | PROVIDERS: PCP Internal Medicine; Visit Provider Physician Assistant | DX: Z13.89 Encounter for screening for other disorder (principal) ==